=== PATIENT | female | born 1980 | race Asian ===

== ENCOUNTER → 2023-11-16 12:29 | Outpatient (REF) | payer OTHER, SELFPAY | LOC: WDC 12:29 | PROVIDERS: ATTENDING PHYSICIAN Nurse Practitioner Adult Health | DX: Z12.31 Encounter for screening mammogram for malignant neoplasm of breast (principal) | CPT/HCPCS: 77063; 77067 ==

== ENCOUNTER 2024-07-07 13:54 | Emergency (ER) | payer OTHER, SELFPAY ==
[2024-07-07 14:00] VITALS: BP 141/85
[2024-07-07 14:22] VITALS: BMI 24.5
--- NOTE | 2024-07-07 15:08 | ED.GENMED ---
History of Present Illness
General
Chief Complaint: Fall
Source: patient
Exam Limitations: none
Time Seen by Provider: 07/07/24 14:24
Nursing documentation reviewed up to this point in time: agreed with
History of Present Illness
History of Present Illness:
44-year-old female presents to the ER for evaluation.
Patient was drinking alcohol 2 days ago and fell down steps. Son heard her fall and assisted pt. Pt was alert after fall with no loss of consciousness as per son who heard her fall and saw pt on the floor awake after. Patient however has had a
headache since. Because of the headache patient did not get out of bed yesterday. She denies any nausea or vomiting. She is not on blood thinners. Patient complains of pain to the left side of her frontal forehead.
Review of Systems
Review of Systems
Allergies reviewed?: Yes
Other source history: family
All Other Systems: ROS reviewed and negative except as documented in HPI and ROS
Constitutional: Reports no symptoms
ABD/GI: Reports no symptoms; Denies nausea or vomiting
: Reports no symptoms
Musculoskeletal: Reports no symptoms
Skin: Reports no symptoms
Neurological: Reports headache; Denies weakness or numbness
Hematologic/Lymphatic: Reports no symptoms
Psychiatric: Reports no symptoms
Phy Exam
General Physical Exam
General Presentation: no apparent distress
General age: appears stated age
General Skin: warm and dry
General Habitus: normal
General Mental: alert
General Hydration: appears well hydrated
Eye Exam
Eye Exam: PERRL and EOMI
Eye Exam General: PERRL: bilateral and EOM intact: bilateral
Pupil Exam: Bilateral: round and reactive
Neurological Exam
Neurological Exam: alert and oriented x3
Musculoskeletal Exam
Musculoskeletal Exam: full ROM and other ( mild ecchymosis to left forehead region )
Skin Exam
Skin Exam: normal color and warm/dry
Psychiatric Exam
Psychiatric Exam: normal mood/affect
Course
Orders/Labs/Results
Orders:
Orders
07/07/24 14:04
CT Head W/o Iv Contrast Urgent
Comment:
Reason For Exam: fall
07/07/24 15:08
CT Cervical Spine W/o Iv Contr Urgent
Comment:
Reason For Exam: trauma
Vital Signs
Initial and Last Documented VS:
Initial Vital Signs
Temp Pulse Resp BP Pulse Ox
98 F 76 16 141/85 99
07/07/24 14:00 07/07/24 14:00 07/07/24 14:00 07/07/24 14:00 07/07/24 14:00
Last Documented Vital Signs
Temp Pulse Resp BP Pulse Ox
98 F 80 18 136/82 99
07/07/24 14:00 07/07/24 17:30 07/07/24 17:30 07/07/24 17:30 07/07/24 17:30
MDM/Problems Addressed
Differential Diagnosis Includes:
not limited to: Intracranial hemorrhage ,head injury,consussion
MDM/Problems Addressed:
Patient fell 2 days ago after drinking alcohol. Son heard her fall she was awake after fall and had no loss of consciousness but has had a headache since. She is not on blood thinners. CT head and cervical spine are negative symptoms are
consistent with concussion. Patient is awake alert able to give history and is steady on her feet. Will DC with outpatient by family doctor.
*Radiology
Radiology exam reviewed: radiology read reviewed
*Pulse Oximetry
Patient hypoxic: no
*Critical Care Note
Total Time (30-74mins, 75-104mins- exclusive of procedures): Not Applicable
ED Attending Note
-
Portions of this chart may have been created with voice recognition software.� Occasional wrong word or��sound alike� substitutions may have occurred due to the inherent limitations of voice recognition software.
Discharge Plan
Departure
Patient Disposition: Home (Routine Discharge)
Date of Disposition: 07/07/24
Time of Disposition: 17:29
Patient with high blood pressure during this ER visit?: Yes
Condition: Fair
Covid-19: Not Applicable
Discharge Problem:
Head injury, Concussion
Instructions: Head Injury in Adults (DC), Concussion in adults - ED discharge instructions, BLOOD PRESSURE
Referrals:
Jeri Holley CRNP [Family Provider] -
Activity Restrictions/Additional Instructions:
As discussed CAT scan was negative for bleeding. Symptoms are consistent with concussion. Tylenol as needed for headaches. Follow-up close with family doctor .
return if any worsening of symptoms.
Interventions
Interventions:
*Risk Screen - Suicide Last Done: 07/07/24 14:00
*General Assessment Last Done: 07/07/24 14:00
*Neglect/Abuse Screening Last Done: 07/07/24 14:00
*ED COVID-19 Vaccine History Last Done: 07/07/24 14:00
*Nursing Disposition Last Done: 07/07/24 17:31
ED-Musculoskeletal Assessment Last Done: 07/07/24 14:22
ED- Neurological Assessment Last Done: 07/07/24 14:22
ED-Skin Assessment Last Done: 07/07/24 14:22
Discharge Date and Time
Discharge Date/Time: 07/07/24 17:34
Print Language: BELARUSIAN
[2024-07-07 17:30] VITALS: BP 136/82
== END 2024-07-07 17:34 | disposition home or self-care (01) ==
LOC: EMR 13:54
PROVIDERS: EMERGENCY PHYSICIAN Emergency Medicine; FAMILY PHYSICIAN Nurse Practitioner Family
DX: S09.90XA Unspecified injury of head, initial encounter (principal); S06.0X0A Concussion without loss of consciousness, initial encounter; R51.9 Headache, unspecified; F10.90 Alcohol use, unspecified, uncomplicated; S00.83XA Contusion of other part of head, initial encounter; W10.9XXA Fall (on) (from) unspecified stairs and steps, initial encounter; R03.0 Elevated blood-pressure reading, without diagnosis of hypertension
CPT/HCPCS: 99284; 70450; 72125